=== PATIENT | female | born 2000 | race Caucasian/White ===

== ENCOUNTER 2020-09-12 05:47 | Inpatient (IN) ==
[2020-09-12] MEDS ORDERED: Naloxone 0.4 MG/ML INJ IVP PRN (05:53)
[2020-09-12] MEDS ORDERED: Famotidine 20 MG/2 ML VIAL IVP PRN (05:53)
[2020-09-12] MEDS ORDERED: Lidocaine 1% 20 ML MDV INFILT PRN (05:53)
[2020-09-12] MEDS ORDERED: *HR* Nalbuphine 10 MG/ML AMPUL IV PRN (05:53)
[2020-09-12] MEDS ORDERED: Ondansetron 4 MG/2 ML VIAL IVP PRN (05:53)
[2020-09-12] MEDS ORDERED: Metoclopramide 10 MG/2 ML VIAL IVP PRN (05:53)
[2020-09-12] MEDS ORDERED: Ringers Solution, Lactated 1,000 ML IVC SCH (06:00)
[2020-09-12] MEDS ORDERED: miSOPROStoL 25 MCG TABLET PO PRN (08:14)
[2020-09-12 08:27] LABS: Basophils % 0.2 %; Eosinophils # 0.1 K/mcL (0.0-0.6); Eosinophils % 0.5 %; Immature Granulocytes % 0.9 % (0-4); Lymphocytes # 1.8 K/mcL (0.6-4.6); Lymphocytes % 16.3 %; Mean Corpuscular HGB Conc 31.4 g/dL (31.6-35.5); Mean Corpuscular Hemoglobin 27.5 pg (28.0-33.3); Mean Corpuscular Volume 87.5 fL (83.0-100.0); Mean Platelet Volume 12.7 fL (9.4-12.4); Monocytes # 0.9 K/mcL (0.0-1.3); Monocytes % 8.2 %; Neutrophils # 8.1 K/mcL (1.6-8.9); Platelet Count 232 K/mcL (140-400); Red Cell Distribution Width 13.8 % (11.5-14.5); Segmented Neutrophils % 73.9 %; White Blood Count 10.9 K/mcL (4.3-11.1)
[2020-09-12 11:10] LABS: Amphetamine Screen,Urine Negative ng/mL (Cutoff=1000); Barbiturate Screen,Urine Negative ng/mL (Cutoff=200); Benzodiazepines Screen,Urine Negative ng/mL (Cutoff=200); Cannabinoid Screen,Urine Negative ng/mL (Cutoff = 50); Cocaine Screen,Urine Negative ng/mL (Cutoff= 300); Opiate Screen,Urine Negative ng/mL (Cutoff=300); Phencyclidine Screen,Urine Negative ng/mL (Cutoff=25)
[2020-09-12] MEDS ORDERED: Oxytocin 20 units/ LR 1000 mL 20 UNIT/1,000 ML BAG IVC SCH (15:30)
[2020-09-12] MEDS ORDERED: EPHEDrine 50 MG/ML VIAL IVP PRN (20:58)
[2020-09-12] MEDS ORDERED: Epidural Premix (fent/bupiv) 110 ML EP SCH (21:00)
[2020-09-13] MEDS ORDERED: Measles/Mumps/Rubella Vacc 0.5 ML VIAL SQ PRN (02:43)
[2020-09-13] MEDS ORDERED: Rho Immune Globulin 1,500 UNIT SYRINGE IM PRN (02:43)
[2020-09-13] MEDS ORDERED: Acetaminophen 325 MG TABLET PO PRN (02:43)
[2020-09-13] MEDS ORDERED: Oxytocin 20 units/ LR 1000 mL 20 UNIT/1,000 ML BAG IVC SCH (02:43)
[2020-09-13 08:31] LABS: Basophils % 0.1 %; Eosinophils % 0.1 %; Hematocrit 26.3 % (35.3-44.9); Immature Granulocytes % 0.7 % (0-4); Lymphocytes # 1.5 K/mcL (0.6-4.6); Lymphocytes % 7.9 %; Mean Corpuscular HGB Conc 31.9 g/dL (31.6-35.5); Mean Corpuscular Hemoglobin 27.2 pg (28.0-33.3); Mean Corpuscular Volume 85.1 fL (83.0-100.0); Mean Platelet Volume 12.3 fL (9.4-12.4); Monocytes # 1.2 K/mcL (0.0-1.3); Monocytes % 6.4 %; Neutrophils # 15.6 K/mcL (1.6-8.9); Platelet Count 234 K/mcL (140-400); Red Blood Count 3.09 M/mcL (3.82-4.97); Red Cell Distribution Width 13.6 % (11.5-14.5); Segmented Neutrophils % 84.8 %
[2020-09-13 08:32] LABS: Hemoglobin 8.4 g/dL (11.5-15.4); White Blood Count 18.4 K/mcL (4.3-11.1)
[2020-09-13] MEDS ORDERED: NON-FORMULARY MEDICATION 1 EACH EACH (Prenat 115/Iron Fum/Folic/Dss [Prenatal 19 Tablet] 1 PO SCH (09:00)
[2020-09-13] MEDS: Ibuprofen 600 MG TABLET PO PRN ×2 (09:20→15:21)
[2020-09-13] MEDS: Prenatal Vit/FA 1 EACH TABLET PO SCH (09:20)
[2020-09-14] MEDS: Ibuprofen 600 MG TABLET PO PRN (06:09)
[2020-09-14 07:44] VITALS: BP 114/75
[2020-09-14] MEDS: Prenatal Vit/FA 1 EACH TABLET PO SCH (07:45)
== END 2020-09-14 12:25 | disposition home or self-care (01) | DRG 560 ==
LOC: 1NENULAB 05:47 → 1NENUOBS 09-13 03:59
PROVIDERS: ADMIT Student in an Organized Health Care Education/Training Program; ATTEND Student in an Organized Health Care Education/Training Program